=== PATIENT | male | born 1995 | race Caucasian/White ===

== ENCOUNTER 2017-10-04 21:31 | Emergency (ER) | payer OTHER ==
[2017-10-04] MEDS: GI COCKTAIL 50ML BTL(HYOSCYAMINE/MAALOX/LIDOCAINE VISCOUS)(1:3:1) PO (22:52)
[2017-10-04] MEDS: ASPIRIN 81 MG CHEW TABLET PO (22:52)
[2017-10-04 23:00] LABS: BASO # 0.1 10^3/uL (0.0-0.2); EOS # 0.3 10^3/uL (0.0-0.50); HEMATOCRIT 45.3 % (42.0-52.0); HEMOGLOBIN 15.4 g/dl (13.5-17.5); IMMATURE GRANULOCYTE % 0.2 % (0-3.0); LYMPH # 2.3 10^3/uL (1.5-6.5); LYMPH % 28.4 % (24.0-44.0); MEAN CORPUSCULAR HEMOGLOBIN 29.6 pg (27.0-33.0); MEAN CORPUSCULAR VOLUME 86.9 fl (80.0-96.0); MONO # 0.7 10^3/uL (0.0-0.8); MONO % 8.7 % (0.0-5.0); NEUTROPHILS # 4.7 10^3/uL (1.8-7.7); NEUTROPHILS % 57.7 % (36.0-66.0); PLATELET COUNT, AUTOMATED 300 10^3/uL (150-450); RED BLOOD COUNT 5.21 10^6/uL (4.30-6.10); RED CELL DISTRIBUTION WIDTH 11.9 % (11.5-14.5); WHITE BLOOD COUNT 8.2 10^3/uL (4.0-10.0)
[2017-10-04 23:12] LABS: VENOUS BASE EXCESS -0.4 (-2.0-2.0); VENOUS HCO3 26.5 MEQ/L (23.0-27.0); VENOUS O2 SATURATION 78.4 % (60.0-80.0); VENOUS PARTIAL PRESSURE CO2 51.6 mmHg (38.0-50.0); VENOUS PH 7.329 UNITS (7.330-7.430); VENOUS STANDARD HCO3 23.7 MEQ/L; VENOUS TOTAL CO2 28.1 MEQ/L (24.0-28.0)
[2017-10-04 23:23] LABS: ERYTHROCYTE SEDIMENTATION RATE 2 mm/hr (0-15)
[2017-10-04 23:27] LABS: ALKALINE PHOSPHATASE 119 U/L (45-117); ALT/SGPT 35 U/L (12-78); ANION GAP 7 MEQ/L (8-16); AST/SGOT 22 U/L (7-37); BILIRUBIN,DIRECT 0.1 MG/DL (0.0-0.2); BILIRUBIN,TOTAL 0.4 MG/DL (0.2-1.0); BLOOD UREA NITROGEN 13 MG/DL (7-18); CALCIUM LEVEL 8.4 MG/DL (8.5-10.1); CARBON DIOXIDE LEVEL 27 MEQ/L (21-32); CHLORIDE LEVEL 106 MEQ/L (98-107); CPK CREATINE PHOSPHOKINASE 167 U/L (39-308); CREATININE FOR GFR 0.94 MG/DL (0.70-1.30); GLOMERULAR FILTRATION RATE > 60.0 (>60); GLUCOSE, FASTING 62 MG/DL (70-100); SODIUM LEVEL 140 MEQ/L (136-145); TOTAL PROTEIN 7.5 GM/DL (6.4-8.2)
[2017-10-04 23:28] LABS: ALBUMIN/GLOBULIN RATIO 1.14 (1.00-1.93); C REACTIVE PROTEIN QUANTITATIV < 0.30 MG/DL (0.00-0.30); LIPASE 118 U/L (73-393); TROPONIN I < 0.02 NG/ML (< 0.10)
[2017-10-04 23:29] LABS: CK-MB VALUE MASS 1.6 NG/ML (<3.6); MB/CK RELATIVE INDEX 0.95 (< OR =4)
[2017-10-04 23:30] LABS: NT-PRO BNP 10 PG/ML (<125)
[2017-10-05] MEDS: OMEPRAZOLE 20 MG CAP PO
== END 2017-10-05 00:16 | disposition home or self-care (01) ==
LOC: M ED 10-05 00:16
DX: K29.00 Acute gastritis without bleeding (principal); K21.9 Gastro-esophageal reflux disease without esophagitis; E83.51 Hypocalcemia; F17.220 Nicotine dependence, chewing tobacco, uncomplicated
CPT/HCPCS: 71046

== ENCOUNTER 2018-07-16 18:00 | Emergency (ER) | payer OTHER ==
[~2018-07-16] VITALS: Ht 182.9 cm; Wt 88.6 kg
[~2018-07-16 18:00] MED LIST: PRIL20TA2 PO
[2018-07-16] MEDS ORDERED: LIDOCAINE 2% MDV 20 ML VIAL SC ONE (19:00)
[2018-07-16 19:29] VITALS: BP 136/88
[2018-07-16] MEDS ORDERED: ADACEL/BOOSTRIX VACCINE (DIPHTH/PERTUSS/ACELL/TETANUS)0.5ML SYR (90715) IM ONE (19:30)
== END 2018-07-16 19:47 | disposition home or self-care (01) ==
LOC: M ED 18:00
DX: S01.511A Laceration without foreign body of lip, initial encounter (principal); W22.8XXA Striking against or struck by other objects, initial encounter; Y92.138 Other place on military base as the place of occurrence of the external cause; Y99.1 Military activity; Z77.098 Contact with and (suspected) exposure to other hazardous, chiefly nonmedicinal, chemicals

== ENCOUNTER 2020-04-02 09:06 | Emergency (ER) | payer OTHER ==
[~2020-04-02] VITALS: Ht 182.9 cm; Wt 92.3 kg
[2020-04-02 10:27] LABS: MONO REFLEX EBV COMP NEGATIVE (NEGATIVE)
[2020-04-02] MEDS ORDERED: ISOVUE-370 76% 100ML VIAL As Ordered ONE (10:40)
[2020-04-02] MEDS ORDERED: KETOROLAC 30 MG/ML 1ML VIAL IV ONE (10:45)
[2020-04-02] MEDS ORDERED: dexameTHASONE 20MG/5ML VIAL (J1100 PER 1MG) IV ONE (10:45)
[2020-04-02 11:09] LABS: BASO % 0.4 % (0.0-1.0); EOS % 0.1 % (0.0-3.0); HEMATOCRIT 46.3 % (42.0-52.0); HEMOGLOBIN 15.7 g/dl (13.5-17.5); LYMPH # 1.2 10^3/uL (1.5-5.0); LYMPH % 13.6 % (24.0-44.0); MEAN CORPUSCULAR HEMOGLOBIN 30.5 pg (27.0-33.0); MEAN CORPUSCULAR HGB CONC 33.9 g/dl (32.0-36.5); MEAN CORPUSCULAR VOLUME 90.1 fl (80.0-96.0); MONO # 0.9 10^3/uL (0.0-0.8); MONO % 10.2 % (0.0-5.0); NEUTROPHILS # 6.8 10^3/uL (1.5-8.5); NEUTROPHILS % 75.5 % (36.0-66.0); PLATELET COUNT, AUTOMATED 231 10^3/uL (150-450); RED BLOOD COUNT 5.14 10^6/uL (4.30-6.10)
--- NOTE | 2020-04-02 11:29 | REPVR ---
PROCEDURE INFORMATION: Exam: CT Neck With Contrast Exam date and time: 04/02/2020 10:33 AM Age: 24 years old Clinical indication: Mass, lump, or swelling in neck; Additional info: Sig swelling of tonsils R/O abscess/airway compromise TECHNIQUE: Imaging protocol: Computed tomography images of the neck with intravenous contrast. Radiation optimization: All CT scans at this facility use at least one of these dose optimization techniques: automated exposure control; mA and/or kV adjustment per patient size (includes targeted exams where dose is matched to clinical indication); or iterative reconstruction. Contrast material: ISOVUE 370; Contrast volume: 75 ml; Contrast route: INTRAVENOUS (IV); COMPARISON: No relevant prior studies available. FINDINGS: Nasopharynx: Unremarkable. Oropharynx: Bilateral palatine tonsillar hypertrophy, larger on the left, opposing in the midline, no peritonsillar or intra tonsillar abscess identified. Hypopharynx: Unremarkable. Larynx: Unremarkable. Normal epiglottis. Retropharyngeal space: Unremarkable. Submandibular/Parotid glands: Normal. Glands are normal in size. Thyroid: Normal. No enlarged or calcified nodules. Lymph nodes: Right level 2 lymph node, largest measuring 12.7 mm short axis. Left level 2 lymph nodes, largest measuring 14.8 mm short axis. Right level 2/3 lymph node measuring 11.8 mm short axis. Left level 2 lymph node measuring 10.6 mm short axis. Left upper posterior triangle lymph node measuring 10.3 mm short axis. Left supraclavicular lymph node measuring 8.7 mm short axis. Trachea: Visualized trachea is unremarkable. Lungs: Unremarkable as visualized. Bones/joints: Unremarkable. No acute fracture. Soft tissues: Unremarkable. No significant soft tissue swelling. IMPRESSION: 1. Bilateral palatine tonsillar hypertrophy. No abscess identified. 2. Bilateral nonspecific mild cervical lymphadenopathy. Electronically signed by: Jacob Mcintosh On 04/02/2020 11:29:52 AM
[2020-04-02 11:33] LABS: ERYTHROCYTE SEDIMENTATION RATE 21 mm/hr (0-15)
[2020-04-02] MEDS ORDERED: MEDR4PAK PO (11:40)
[2020-04-02] MEDS ORDERED: BICILLIN L-A 2,400,000 UNIT/4 ML SYRINGE (J0561-24)PENICILLIN G BENZATINE IM ONE (11:45)
[2020-04-02 12:54] VITALS: BP 122/73
[2020-04-03 14:11] LABS: EBV VIRAL CAPSID AG IgG >600.0 U/mL (0.0-17.9); EBV VIRAL CAPSID AG IgM <36.0 U/mL (0.0-35.9)
== END 2020-04-02 12:56 | disposition home or self-care (01) ==
LOC: M ED 09:06
DX: J03.90 Acute tonsillitis, unspecified (principal)
CPT/HCPCS: 36415; 70491; 80047; 85025; 85652; 86140; 86308; 86664; 86665; 87880; 96372; 96374; 96375; 99284; J0561; J1100; J1885; Q9967

== ENCOUNTER 2020-07-07 13:33 | Emergency (ER) | payer OTHER ==
[~2020-07-07] VITALS: Ht 182.9 cm; Wt 96.7 kg
[~2020-07-07 13:33] MED LIST changes: +MEDR4PAK PO
[2020-07-07 13:34] VITALS: BP 136/86
[2020-07-07] MEDS ORDERED: COUG1LOZ8 PO (13:42)
--- OUTSIDE RECORDS SUMMARY | 2020-07-07 14:09 | CCD ---
Author Author [facility] Organization [facility] Address Unknown Phone Unavailable Support Name Relationship Address Phone IRIS DUNHAM Next Of Kin Unknown [facility] Next Of Kin [address] [place] [address] Unavailable LAMONTE KELLY Next Of Kin [address] [birth year] [place] [id number] Re-disclosure Warning The records that you are about to access may contain information from federally-assisted alcohol or drug abuse programs. If such information is present, then the following federally mandated warning applies: This information has been disclosed to you from records protected by federal confidentiality rules (42 CFR part 2). The federal rules prohibit you from making any further disclosure of this information unless further disclosure is expressly permitted by the written consent of the person to whom it pertains or as otherwise permitted by 42 CFR part 2. A general authorization for the release of medical or other information is NOT sufficient for this purpose. The Federal rules restrict any use of the information to criminally investigate or prosecute any alcohol or drug abuse patient.The records that you are about to access may contain highly sensitive health information, the redisclosure of which is protected by Article 27-F of the [facility] Public Health law. If you continue you may have access to information: Regarding HIV / AIDS; Provided by facilities licensed or operated by the [facility] Office of Mental Health; or Provided by the [facility] Office for People With Developmental Disabilities. If such information is present, then the following [facility] mandated warning applies: This information has been disclosed to you from confidential records which are protected by state law. State law prohibits you from making any further disclosure of this information without the specific written consent of the person to whom it pertains, or as otherwise permitted by law. Any unauthorized further disclosure in violation of state law may result in a fine or snf sentence or both. A general authorization for the release of medical or other information is NOT sufficient authorization for further disc losure. Insurance Providers Payer name Policy type / Coverage type Policy ID Covered constitution party ID Covered constitution party's relationship to lauren Policy Lauren Plan Information [facility] [employer] [id number] SP [id number] [facility] - O/P [id number] 18 [id number]
--- OUTSIDE RECORDS SUMMARY | 2020-07-07 14:19 | CCD ---
Author Author [facility] Organization [facility] Address Unknown Phone Unavailable Support Name Relationship Address Phone IRIS DUNHAM Next Of Kin Unknown [facility] Next Of Kin [address] [place] [address] Unavailable LAMONTE KELLY Next Of Kin [address] [birth year] [place] [id number] Re-disclosure Warning The records that you are [...] is protected by Article 27-F of the [facility] Public Health law. If you continue you may have access to information: Regarding HIV / AIDS; Provided by facilities licensed or operated by the [facility] Office of Mental Health; or Provided by the [facility] Office for People With Developmental Disabilities. If such information is present, then the following [facility] mandated warning applies: This information has been [...] law may result in a fine or chcf sentence or both. A general authorization for the release of medical or other information is NOT sufficient authorization for further disc losure. Insurance Providers Payer name Policy type / Coverage type Policy ID Covered democrat ID Covered democrat's relationship to lauren Policy Lauren Plan Information [facility] [id number] SP [id number] [facility] - O/P [id number] 18 [id number]
[2020-07-07] MEDS ORDERED: AMOX875T PO (14:47)
== END 2020-07-07 14:54 | disposition home or self-care (01) ==
LOC: M ED 13:33
DX: H61.21 Impacted cerumen, right ear (principal); H66.91 Otitis media, unspecified, right ear